=== PATIENT | male | born 1945 | race Caucasian/White ===

== ENCOUNTER → 2021-11-21 09:28 | Outpatient (REF) | payer MEDICARE, OTHER, SELFPAY ==
--- NOTE | 2021-11-21 09:40 | CA_ITS ---
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 Mildly reduced LV systolic function with LVEF of 45-50% with mild LVH with underlying suggestion of inferior wall motion abnormality suggestive underlying coronary artery disease 2. At least mildly dilated left atrium 3. Trivial aortic regurgitation 4. Mildly dilated ascending aorta at 4.2 cm 5. Normal RV systolic pressure 6. Small pericardial effusion near the LV Findings Left Ventricle Normal left ventricular cavity size. There is mildly increased left ventricular wall thickness. The left ventricular systolic function is mildly decreased. The visually estimated ejection fraction is between 45-50%. Diastolic function is indeterminate on the basis of available data. Wall Motion Rest Echo Findings The basal inferior, mid inferior, and basal inferoseptal segments are akinetic. All other scored wall segments showed normal motion. Right Ventricle Normal right ventricular cavity size and systolic function. Atria The left atrium is mildly dilated. Interatrial shunt cannot be excluded. The right atrium is normal in size. Aortic Valve The aortic valve structure and function is likely normal. There is no aortic valve stenosis. There is trace (trivial) aortic valve regurgitation. Mitral Valve There is mild anterior and posterior mitral leaflet thickening. There is trace mitral valve regurgitation. There is no mitral valve stenosis. Pulmonic Valve The pulmonic valve was not well visualized. Tricuspid Valve The tricuspid valve was not well visualized. The right ventricular systolic pressure is normal. Great Vessels The pulmonary artery was not well visualized. There is mild dilatation of the ascending aorta measuring 4.20 cm. Venous The inferior vena cava was not well visualized. Pericardium/Pleural There is a small loculated pericardial effusion overlying the left ventricle. Prior Study Comparison no previous study in the last 5 years for comparison Measurements 2D Linear Measurements IVSd: 1.24 0.6-0.9/0.6-1.0 cm LVIDd: 4.86 3.9-5.3/4.2-5.9 cm LVIDd Index: 2.28 2.4-3.2/2.2-3.1 cm/m2 LVIDs: 3.14 2.0-3.6 cm LVPWd: 1.31 0.7-1.1 cm LA Diam: 4.70 2.7-3.8/3.0-4.0 cm LAIDs Index: 2.21 1.5-2.3 cm/m2 LV Mass: 303.76 67-162/88-224 g LV Mass Index: 142.61 43-95/49-115 g/m2 LVOT Diam: 2.20 3.0+(-)1.3 cm 2D Systolic Function EF 4C: 50.60 >55% EF 2C: 46.50 >55% EF BiP: 47.10 >55% Aortic Valve AoV Pk Omid: 1.19 AoV Mn Omid: 0.90 AoV VTI: 0.24 AoV Pk Grad: 6.00 Aov Mn Grad: 4.00 GA Cont.VTI: 2.67 LVOT LVOT Pk Omid: 0.77 LVOT Mn Omid: 0.51 LVOT VTI: 0.17 LVOT Pk Grad: 2.00 LVOT Mn Grad: 1.00 LVOT Diam: 2.20 LVOT Area: 3.80 Right Ventricle TAPSE (mm): 22.10 TVS' Omid: 14.00 Tricuspid Valve TR Pk Omid: 2.27 TR Pk Grad: 21.00 Great Vessels Aorta Sinus of Valsalva: 3.57 2.0-3.[address] Ridge: 2.95 1.7-3.4 cm Ao Asc: 4.20 2.1-3.4 cm Updated in Other Vendor System with Status of Final Brock Ruth MD electronically signed on 11/23/2021 1:44:22 PM with status of Final
== END ==
LOC: HO.CARD 09:28
PROVIDERS: PCP Internal Medicine; Visit Provider Internal Medicine
DX: I48.3 Typical atrial flutter (principal)
CPT/HCPCS: 93306